=== PATIENT | female | born 2000 | race Hispanic/Latino ===

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

== ENCOUNTER 2022-05-11 12:41 | Emergency (ER) | payer MEDICAID ==
[~2022-05-11] VITALS: Ht 160 cm; Wt 56.8 kg
[~2022-05-11 12:41] MED LIST changes: +METRONIDAZOLE500 MG PO; +TERCONAZOLE0.4 % VA
[2022-05-11 14:01] LABS: HEMOGLOBIN 13.9 g/dl (12.0-16.0); IMMATURE GRANULOCYTES 0.1 % (0.0-5.0); MEAN CELL VOLUME 80.4 fL CALC (80.0-100.0); MEAN CORPUSCULAR HGB CONC 32.3 g/dL CAL (32.0-36.0); NEUT# 9.45 thou/uL (2.00-7.15); RED BLOOD COUNT 5.35 mill/uL (4.20-5.60); RED CELL DISTRI WIDTH 13.5 % (11.5-15.5)
[2022-05-11 14:09] LABS: URINE BILIRUBIN - DIPSTICK NEGATIVE (NEGATIVE); URINE BLOOD DIPSTICK LARGE (NEGATIVE); URINE COLOR YELLOW; URINE GLUCOSE - DIPSTICK NEGATIVE (NEGATIVE); URINE KETONE TRACE mg/dL (NEGATIVE); URINE PROTEIN - DIPSTICK NEGATIVE (NEG-TRACE); URINE SPECIFIC GRAVITY >=1.030; URINE UROBILINOGEN - DIPSTICK 0.2 E.U./dL (0.2)
[2022-05-11 14:13] LABS: URINE LEUK ESTERASE SMALL (NEGATIVE); URINE NITRITE - DIPSTICK NEGATIVE (Negative)
[2022-05-11 14:19] LABS: URINE RBC 50-100 RBC/hpf (0-5); URINE SQUAMOUS EPITHELIAL CELL FEW EPI/hpf (0-FEW); URINE WBC 20-50 WBC/hpf (0-5)
[2022-05-11 14:57] LABS: ALBUMIN 4.4 g/dL (3.2-5.0); ALKALINE PHOSPHATASE 88 u/l (38-126); ANION GAP 13 (6-22 (CALC)); BILIRUBIN, TOTAL 0.3 mg/dL (0.0-1.4); BUN 10 mg/dL (8-21); BUN/CREATININE RATIO 16 (12-20 (CALC)); CARBON DIOXIDE 28 mmol/l (22-30); CHLORIDE 106 mmol/l (95-108); CREATININE 0.7 mg/dL (0.5-1.0); GFR FOR AFR.AMER. > 60 ML/MIN (>=60 (CALC)); GFR OTHER RACES > 60 ML/MIN (>=60 (CALC)); LIPASE 45 u/l (23-300); POTASSIUM 4.2 mmol/l (3.5-5.1); SGOT/AST 20 u/l (14-36); SODIUM 142 mmol/l (137-146); TOTAL PROTEIN 8.2 g/dL (6.3-8.2)
[2022-05-11] MEDS ORDERED: KEFLEX500 MG PO (16:07)
[2022-05-11 16:23] VITALS: BP 119/78
== END 2022-05-11 16:29 | disposition home or self-care (01) ==
LOC: ED 12:41
PROVIDERS: Family Medicine
DX: N39.0 Urinary tract infection, site not specified (principal); B96.20 Unspecified Escherichia coli [E. coli] as the cause of diseases classified elsewhere; N28.1 Cyst of kidney, acquired

== ENCOUNTER 2022-09-01 10:48 | Emergency (ER) | payer MEDICAID ==
[~2022-09-01] VITALS: Ht 160 cm; Wt 62.7 kg
[~2022-09-01 10:48] MED LIST changes: +KEFLEX500 MG PO
[2022-09-01 12:22] LABS: URINE BILIRUBIN - DIPSTICK NEGATIVE (NEGATIVE); URINE BLOOD DIPSTICK LARGE (NEGATIVE); URINE COLOR YELLOW; URINE GLUCOSE - DIPSTICK NEGATIVE (NEGATIVE); URINE KETONE NEGATIVE (NEGATIVE); URINE PROTEIN - DIPSTICK TRACE mg/dL (NEG-TRACE); URINE SPECIFIC GRAVITY 1.025; URINE UROBILINOGEN - DIPSTICK 0.2 E.U./dL (0.2)
[2022-09-01 12:26] LABS: URINE LEUK ESTERASE SMALL (NEGATIVE); URINE NITRITE - DIPSTICK NEGATIVE (Negative)
[2022-09-01 12:28] LABS: URINE BACTERIA FEW hpf; URINE EPITHELIAL CELLS MODERATE EPI/hpf (0-FEW); URINE RBC 25-50 RBC/hpf (0-5)
[2022-09-01] MEDS ORDERED: KEFLEX500 MG PO (14:01)
[2022-09-01] MEDS ORDERED: PHENAZOPYRIDIN100 M1 PO (14:03)
[2022-09-01 14:15] VITALS: BP 100/68
== END 2022-09-01 14:20 | disposition home or self-care (01) ==
LOC: ED 10:48
PROVIDERS: Family Medicine
DX: N39.0 Urinary tract infection, site not specified (principal); B96.4 Proteus (mirabilis) (morganii) as the cause of diseases classified elsewhere

== ENCOUNTER 2022-11-17 12:41 | Emergency (ER) | payer MEDICAID ==
[2022-11-17] VITALS (12 sets, daily range): BP systolic 98–122; BP diastolic 55–75
[~2022-11-17] VITALS: Ht 160 cm; Wt 64.4 kg
[~2022-11-17 12:41] MED LIST changes: +PHENAZOPYRIDIN100 M1 PO
[2022-11-17] MEDS ORDERED: PRENATA3 PO (12:56)
[2022-11-17 13:41] LABS: ALBUMIN 4.1 g/dL (3.2-5.0); ALKALINE PHOSPHATASE 66 u/l (38-126); BILIRUBIN, TOTAL 0.3 mg/dL (0.02-1.3); BUN 5 mg/dL (7-17); BUN/CREATININE RATIO 10 (12-20 (CALC)); CHLORIDE 103 mmol/l (95-108); CREATININE 0.5 mg/dL (0.5-1.0); GFR FOR AFR.AMER. > 60 ML/MIN (>=60 (CALC)); GFR OTHER RACES > 60 ML/MIN (>=60 (CALC)); POTASSIUM 3.8 mmol/l (3.5-5.1); SGOT/AST 27 u/l (14-36); TOTAL PROTEIN 7.5 g/dL (6.3-8.2)
[2022-11-17 13:46] LABS: ANION GAP 12 (6-22 (CALC)); CARBON DIOXIDE 22 mmol/l (22-30); SODIUM 133 mmol/l (137-146)
[2022-11-17 14:09] LABS: BASO% 0.4 % (0-3); EOS% 0.8 % (0-8); HEMATOCRIT 38.9 % (37.0-47.0); HEMOGLOBIN 12.6 g/dl (12.0-16.0); IMMATURE GRANULOCYTES 0.1 % (0.0-5.0); LYMPH% 11.7 % (15-41); MEAN CELL VOLUME 82.1 fL CALC (80.0-100.0); MEAN CORPUSCULAR HGB 26.6 pG CALC (26.0-32.0); MEAN CORPUSCULAR HGB CONC 32.4 g/dL CAL (32.0-36.0); MONO% 7.6 % (2-13); NEUT# 6.78 thou/uL (2.00-7.15); NEUT% 79.4 % (42-76); RED BLOOD COUNT 4.74 mill/uL (4.20-5.60); RED CELL DISTRI WIDTH 13.6 % (11.5-15.5)
[2022-11-17 14:22] LABS: BETA-HCG, QUANT(RESULT NUMBER) 84005 mIU/mL
[2022-11-17 14:38] LABS: URINE BILIRUBIN - DIPSTICK NEGATIVE (NEGATIVE); URINE BLOOD DIPSTICK NEGATIVE (NEGATIVE); URINE COLOR YELLOW; URINE GLUCOSE - DIPSTICK NEGATIVE (NEGATIVE); URINE KETONE NEGATIVE (NEGATIVE); URINE LEUK ESTERASE TRACE (NEGATIVE); URINE PROTEIN - DIPSTICK NEGATIVE (NEG-TRACE); URINE UROBILINOGEN - DIPSTICK 0.2 E.U./dL (0.2)
[2022-11-17 14:42] LABS: URINE NITRITE - DIPSTICK NEGATIVE (Negative)
== END 2022-11-17 16:00 | disposition home or self-care (01) ==
LOC: ED 12:41
PROVIDERS: Family Medicine; Nurse Practitioner
DX: O99.411 Diseases of the circulatory system complicating pregnancy, first trimester (principal); I95.1 Orthostatic hypotension; O99.281 Endocrine, nutritional and metabolic diseases complicating pregnancy, first trimester; E86.0 Dehydration; O26.891 Other specified pregnancy related conditions, first trimester; R10.32 Left lower quadrant pain; Z3A.13 13 weeks gestation of pregnancy